=== PATIENT | female | born 1935 | race Caucasian/White ===

== ENCOUNTER 2018-04-06 00:24 | Inpatient (IN) ==
--- NOTE | 2018-04-06 04:56 | Internal Med History&Physical ---
Date of Encounter: 04/06/18 Time of Encounter: 04:51 Internal Medicine - H&P: HPI Chief complaint: Right humerus and ulnar fracture Admitted From: Home Plans for Post Hospital Care: Home History of present illness: Ms. GUERRA is a 82 year old female with history of diabetes mellitus, hypertension was transferred to [facility] from [facility] ER after diagnosing right displaced proximal humeral fracture, right nondisplaced proximal ulnar fracture. Patient is status that she was being chased by bees and she lost the balance and landed on her right hand and hit the head but did not lose the consciousness. She called her son who lives next door for the help and was brought to [facility] ER by him She also denies any anticoagulation medication intake. She had a scalp laceration and got three-step oral at the ER Review of system-patient denies fever chills nausea vomiting headache dizziness chest pain shortness of breath abdominal pain diarrhea. Patient has decreased urine output since yesterday as did not eat drink much since after the fall. Past Med Surg Social Fam HX - Past Medical History Medical history: diabetes, glaucoma, hypertension, thyroid disease Additional medical history: Prolapsed Bladder Psychiatric history: no psych history - Past Surgical History Surgical History: herniorrhaphy, hysterectomy - Social History Smoking Status: Never smoker Smokeless Tobacco Status: No Alcohol use: none Drug use: none - Family History Mother Name: home scott Living Status: Cause of : cancer Hx Family Cancer: Yes (cervical with mets to liver) Internal Medicine - H&P: Meds Doxycycline Hyclate [Vibramycin] 100 mg PO 1-2XD 04/06/18 [History] GlipiZIDE [Glipizide ER] 10 mg PO 1-2XD 04/06/18 [History] Levothyroxine [Synthroid] 125 mcg PO DAILY 04/06/18 [History] Lisinopril [Zestril] 5 mg PO DAILY 04/06/18 [History] Loratadine [Allergy Relief] 10 mg PO DAILY 04/06/18 [History] 3 Allergy/AdvReac Type Severity Reaction Status Date / Time No Known Allergies Allergy Verified 04/06/18 03:36 All Systems PM: A 10-system review of systems was performed and is negative for pertinent findings except as documented above in the HPI. - Constitutional Vitals: Temp Pulse Resp BP Pulse Ox 98.8 F 77 16 136/70 93 04/06/18 02:57 04/06/18 02:57 04/06/18 02:57 04/06/18 02:57 04/06/18 02:57 Exam: General appearance: Mild distress due to pain , A&O X 3, appears slightly dehydrated Head exam: Scalp laceration three brittnee at right parietal area Eye exam: EOMI, PERRLA ENT exam: Dry oral mucosa Neck nontender, supple Respiratory exam: Clear to auscultation bilaterally Cardiovascular exam: Regular rate and rhythm, no systolic murmur Abdominal exam: Soft, nontender, nondistended, positive bowel sounds Extremities exam: No calf tenderness, no pedal edema Present: Right upper extremity tender arm and forearm. Right upper extremity on swelling. Able to move all the fingers and intact sensation radial pulse palpable. Skin-no rash, warm, dry, intact Neurological exam: Alert, awake, oriented 3, CN II-XII intact, no focal deficits. No facial droop. Normal speech. Normal gait. - Assessment and plan (1) Humerus fracture Current Visit: Yes Status: Acute Assessment and plan: After mechanical fall. Displaced right humerus fracture intact neurovascular. Will keep patient nothing by mouth, IV fluid, pain management. Consulted orthopedic surgeon. Qualifiers: Encounter type: initial encounter Humerus Location: proximal Fracture type: closed Fracture morphology: other fracture Fracture alignment: displaced Laterality: right Qualified Code(s): S42.291A - Other displaced fracture of upper end of right humerus, initial encounter for closed fracture (2) Ulnar fracture Current Visit: Yes Status: Acute Assessment and plan: Status post mechanical fall. Nondisplaced right ulnar fracture. Management as above Qualifiers: Encounter type: initial encounter Fracture type: closed Fracture alignment: nondisplaced Laterality: right Qualified Code(s): S52.024A - Nondisplaced fracture of olecranon process without intraarticular extension of right ulna, initial encounter for closed fracture (3) Fall Current Visit: Yes Status: Acute Assessment and plan: Mechanical fall. Patient had a scalp laceration with 3 brittnee. Close monitoring no neurological deficit and patient did not lose consciousness therefore no head CT ordered but will consider if any concern. Qualifiers: Encounter type: initial encounter Qualified Code(s): W19.XXXA - Unspecified fall, initial encounter (4) HTN (hypertension) Current Visit: Yes Status: Acute Assessment and plan: Hold oral medicine. Hydralazine when necessary Qualifiers: Hypertension type: essential hypertension Qualified Code(s): I10 - Essential (primary) hypertension (5) Diabetes mellitus Current Visit: Yes Status: Acute Assessment and plan: Accu-Chek every 6 hours while nothing by mouth, sliding scale insulin coverage. Hold OHA Qualifiers: Diabetes mellitus type: type 2 Diabetes mellitus long-term insulin use: without long-term use Diabetes mellitus complication status: without complication Qualified Code(s): E11.9 - Type 2 diabetes mellitus without complications (6) DVT prophylaxis Current Visit: Yes Status: Acute Assessment and plan: SCDs, heparin - Time Spent With Patient Total time spent is greater than 50% in coordination of care (as documented) at patient's floor/unit and/or counseling patient: 25 - 35 minutes
[2018-04-06] MEDS ORDERED: Naloxone 0.4 MG/ML INJ IVP PRN (04:57)
[2018-04-06] MEDS ORDERED: *HR* Dextrose 50 % in Water (Syg) 50 ML SYRINGE IVP PRN (05:04)
[2018-04-06] MEDS ORDERED: D5% in Water 1,000 ML IVC PRN (05:04)
[2018-04-06] MEDS ORDERED: Dextrose Gel 15 GM/37.5 ML TUBE PO PRN ×2 (05:04)
[2018-04-06] MEDS ORDERED: Insulin LISPRO 300 UNITS/3 ML VIAL SQ SCH ×2 (06:00→21:00)
[2018-04-06 06:01] LABS: Basophils % 0.2 %; Hematocrit 36.8 % (35.3-44.9); Hemoglobin 12.2 g/dL (11.5-15.4); Immature Granulocytes % 0.4 % (0-4); Lymphocytes # 1.4 K/mcL (0.6-4.6); Lymphocytes % 12.7 %; Mean Corpuscular HGB Conc 33.2 g/dL (31.6-35.5); Mean Corpuscular Hemoglobin 30.1 pg (28.0-33.3); Mean Corpuscular Volume 90.9 fL (83.0-100.0); Mean Platelet Volume 9.9 fL (9.4-12.4); Monocytes # 0.5 K/mcL (0.0-1.3); Monocytes % 4.2 %; Neutrophils # 9.2 K/mcL (1.6-8.9); Platelet Count 180 K/mcL (140-400); Red Blood Count 4.05 M/mcL (3.82-4.97); Red Cell Distribution Width 13.2 % (11.5-14.5); Segmented Neutrophils % 82.5 %
[2018-04-06] MEDS: 0.9 % Sodium Chloride 1,000 ML IVC SCH ×2 (06:02→17:54)
[2018-04-06] MEDS: Acetaminophen IV 1,000 MG/100 ML INFUS..BTL IVPB SCH ×4 (06:04→23:44)
[2018-04-06 06:09] LABS: INR 1.1; Prothrombin Time 12.8 Seconds (9.4-12.1)
[2018-04-06 06:11] LABS: Activated Partial Thrombo Time 28.1 Seconds (26.0-36.0)
[2018-04-06 06:20] LABS: BUN/Creatinine Ratio 21 (6-26); Blood Urea Nitrogen 20 mg/dL (8-23); Calcium 9.3 mg/dL (8.6-10.3); Carbon Dioxide 23 mEq/L (23-29); Chloride 107 mEq/L (98-107); Glucose 346 mg/dL (70-105); Osmolality,Calculated 300 (280-300); Potassium 4.7 mEq/L (3.5-5.1); Sodium 137 mEq/L (136-145); eGFR For African Americans > 60 (> 60); eGFR For Non-African Americans 56 (> 60)
[2018-04-06 06:42] LABS: Estimated Average Glucose 220 mg/dl; Hemoglobin A1C 9.3 %
--- NOTE | 2018-04-06 06:44 | Orthopedic Consult Note ---
Date of Encounter: 04/06/18 Time of Encounter: 06:42 History of Present Illness HPI: Ms. GUERRA is a 82 year old female Status post fall yesterday treated at another facility with injury to right side of head and right proximal humerus fracture. Patient transferred for treatment. Physical exam Alert and oriented 3 Patient with stapled laceration right-sided Right upper extremity in splint Decreased motion shoulder secondary to pain Neurovascular intact X-rays of the wrist reviewed and forearm possible nondisplaced ulnar styloid fracture will discontinue splint not necessary. Right shoulder displaced proximal humerus fracture will obtain CT scan for fracture pattern evaluation. Proximal humerus this surgical plan is for surgery tomorrow plan will be reverse shoulder replacement versus open reduction internal fixation after CT scan evaluated. This was discussed with the patient all questions answered. Past Med Surg Social Fam HX - Past Medical History Medical history: diabetes, glaucoma, hypertension, thyroid disease Additional medical history: Prolapsed Bladder Psychiatric history: no psych history - Past Surgical History Surgical History: herniorrhaphy, hysterectomy - Social History Smoking Status: Never smoker Smokeless Tobacco Status: No Alcohol use: none Drug use: none - Family History Mother Name: home scott Living Status: Cause of : cancer Hx Family Cancer: Yes (cervical with mets to liver) Medications and Allergies Doxycycline Hyclate [Vibramycin] 100 mg PO 1-2XD 04/06/18 [History] GlipiZIDE [Glipizide ER] 10 mg PO 1-2XD 04/06/18 [History] Levothyroxine [Synthroid] 125 mcg PO DAILY 04/06/18 [History] Lisinopril [Zestril] 5 mg PO DAILY 04/06/18 [History] Loratadine [Allergy Relief] 10 mg PO DAILY 04/06/18 [History] 3 Allergy/AdvReac Type Severity Reaction Status Date / Time No Known Allergies Allergy Verified 04/06/18 03:36 All Systems Reviewed: The remainder of the systems were reviewed and are negative Physical Exam - Constitutional Vitals: Temp Pulse Resp BP Pulse Ox 98.2 F 72 17 126/64 92 04/06/18 06:37 04/06/18 06:37 04/06/18 06:37 04/06/18 06:37 04/06/18 06:37 Results - Labs Result Diagrams: 04/06/18 05:49 04/06/18 05:49 Labs: Abnormal lab results Neutrophils # 9.2 K/mcL (1.6-8.9) H 04/06/18 05:49 PT 12.8 Seconds (9.4-12.1) H 04/06/18 05:49 Est GFR (Non-Af Amer) 56 (> 60) L 04/06/18 05:49 Glucose 346 mg/dL (70-105) H 04/06/18 05:49 POC Glucose 347 mg/dL (70-99) H 04/06/18 05:54 H & H 04/06/18 Range/Units 05:49 Hgb 12.2 (11.5-15.4) g/dL Hct 36.8 (35.3-44.9) % All other labs normal. Consult Discharge Plan - Plan Referrals: Rosalia Salazar, RN LABOR AND DELIVERY [Primary Care Provider] -
[2018-04-06] MEDS: *HR* Heparin 5,000 UNIT/ML VIAL SQ SCH ×3 (06:55→20:57)
--- NOTE | 2018-04-06 08:36 | Event Note ---
Date of Encounter: 04/06/18 Time of Encounter: 08:30 Ms. GUERRA is a 82 year old female with history of diabetes mellitus, hypertension was transferred to [facility] from [facility] after diagnosing right displaced proximal humeral fracture, right nondisplaced proximal ulnar fracture. Ortho was consulted today, they are plaining for possible surgery tomorrow. Preoperative medical assessment. Patient is 82 years of the female denies history of CAD, [place], stroke, CHF, CKD, she does have diabetes uncontrolled but not on insulin treatment. He denies exertional chest pain shortness of breasts. She is a very active, Mets > 4. Her RCRI score "0". she is considered as low risk for periop adverse cardiovascular events. will check EKG, CXR and UA for ORIF. Uncontrolled DM 2 with hyperglycemia A1C 9.3%, will add detmir 10 units BID
[2018-04-06] MEDS: Insulin LISPRO 300 UNITS/3 ML VIAL SQ SCH ×3 (09:13→17:40)
[2018-04-06] MEDS: Insulin DETEMIR 100 UNIT/ML X5UNITS SQ SCH ×2 (09:17→20:57)
[2018-04-06 15:27] LABS: Bilirubin,Urine Negative (Negative); Blood,Urine Negative (Negative); Clarity,Urine Clear (Clear); Color,Urine Yellow (Yellow); Glucose,Urine (UA) 500 mg/dL (Normal); Ketones,Urine Negative (Negative); Leukocyte Esterase,Urine Trace (Negative); Nitrite,Urine Negative (Negative); PH,Urine 5.5 pH Units (5.0-8.0); Protein,Urine Trace mg/dL (Neg-Trace); Specific Gravity,Urine > 1.030 (1.010-1.025); Urobilinogen,Urine Normal (Normal)
[2018-04-06 15:29] LABS: Bacteria,Urine None Seen per hpf (None-Few); Hyaline Casts,Urine None Seen per lpf (None-Few); Squamous Epithelial Cell,Urine Many per lpf (None-Few); WBC,Urine 15-30 per hpf (0-3)
[2018-04-06] MEDS ORDERED: 0.9 % Sodium Chloride 1,000 ML ONE (17:50)
[2018-04-07] MEDS: *HR* Heparin 5,000 UNIT/ML VIAL SQ SCH ×3 (05:43→21:06)
[2018-04-07] MEDS: Acetaminophen IV 1,000 MG/100 ML INFUS..BTL IVPB SCH ×3 (06:04→23:56)
[2018-04-07] MEDS ORDERED: Insulin DETEMIR 100 UNIT/ML X5UNITS SQ SCH (07:25)
[2018-04-07] MEDS: Insulin LISPRO 300 UNITS/3 ML VIAL SQ SCH ×4 (07:30→21:07)
[2018-04-07] MEDS ORDERED: *HR* HYDROcodone/Acet 5/325 mg TABLET PO PRN (07:51)
[2018-04-07] MEDS ORDERED: 0.9 % Sodium Chloride 1,000 ML IVC SCH (08:15)
[2018-04-07 09:40] LABS: Hematocrit 34.4 % (35.3-44.9); Hemoglobin 11.4 g/dL (11.5-15.4)
[2018-04-07] MEDS ORDERED: *HR* Midazolam HCl 2 MG/2 ML VIAL ONE (10:07)
[2018-04-07] MEDS ORDERED: *HR* Propofol 200 MG/20 ML VIAL IVP ONE (10:07)
[2018-04-07] MEDS ORDERED: *HR* FentaNYL (PF) 100 MCG/2 ML VIAL ONE (10:07)
[2018-04-07] MEDS ORDERED: *HR* Succinylcholine 200 MG/10 ML VIAL IVP ONE (10:14)
[2018-04-07] MEDS ORDERED: Lidocaine -MPF 2% 2 ML VIAL ONE (10:14)
[2018-04-07] MEDS ORDERED: Lidocaine -MPF 4% 5 ML AMPUL ONE (10:14)
[2018-04-07] MEDS ORDERED: *HR* Rocuronium Bromide 50 MG/5 ML VIAL ONE (10:14)
[2018-04-07] MEDS ORDERED: Tetracaine/PF 20 MG/2 ML AMPUL ONE (10:58)
[2018-04-07] MEDS ORDERED: Bupivacaine/Clonidine Syringe 1 EACH SYRINGE ONE (10:58)
[2018-04-07] MEDS ORDERED: ROPIVACAINE HCL/PF 0.5% 30 ML VIAL ONE (10:58)
--- NOTE | 2018-04-07 11:00 | Anesthesia Evaluation PreOp ---
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: Denies Any Significant HX Other Medical History: Diabetes Type II, Thyroid Anesthesia History: No Prior Anesthetic Complications : No Alcohol Use: none Drug use: none Medications and Allergies Doxycycline Hyclate [Vibramycin] 100 mg PO 1-2XD 04/06/18 [History] Latanoprost [Xalatan] 1 drop OP HS 04/06/18 [History] Levothyroxine [Synthroid] 125 mcg PO DAILY 04/06/18 [History] Lisinopril [Zestril] 5 mg PO DAILY 04/06/18 [History] Loratadine [Allergy Relief] 10 mg PO DAILY 04/06/18 [History] glipiZIDE [Glipizide] 10 mg PO TID 04/06/18 [History] 3 Allergy/AdvReac Type Severity Reaction Status Date / Time No Known Allergies Allergy Verified 04/06/18 03:36 - Meds/Allergy Pre-op Review Medications Reviewed: Yes Allergies Reviewed: Yes Beta Blockers on Current Med List: No Anesthesia Results - Labs 04/07/18 08:37 04/06/18 05:49 Laboratory Tests 04/06/18 04/06/18 04/06/18 05:49 05:49 05:49 Hgb Hct Plt Count 180 PT 12.8 H INR 1.1 APTT 28.1 Sodium 137 Potassium 4.7 BUN 20 Creatinine 0.96 04/07/18 08:37 Hgb 11.4 L Hct 34.4 L Plt Count PT INR APTT Sodium Potassium BUN Creatinine - Imaging EKG: report reviewed (SR) Anesthesia Exam O2 Sat Weight 82 kg Weight 76.9 kg O2 Sat by Pulse Oximetry 96 O2 Sat by Pulse Oximetry 94 O2 Sat by Pulse Oximetry 95 O2 Sat by Pulse Oximetry 96 O2 Sat by Pulse Oximetry 96 O2 Sat by Pulse Oximetry 93 O2 Sat by Pulse Oximetry 98 Vital Signs Temp Pulse Resp BP Pulse Ox 98.8 F 77 16 136/70 93 04/06/18 02:57 04/06/18 02:57 04/06/18 02:57 04/06/18 02:57 04/06/18 02:57 Height: 5'5 Weight: 180 lbs NPO (# of Hours): MN Pain Scale: 0 - HEENT Pupil (Motor): Pupils equal, EOMI Mallampati: II Teeth: Normal Oral Opening: Greater than 3 - PROSTHODONTIST/EDUCATOR LOC: Oriented PROSTHODONTIST/EDUCATOR Motor: Normal RUE, Normal LUE, Normal RLE, Normal LLE, Normal Face PROSTHODONTIST/EDUCATOR Sensory: Normal: RUE, LUE, RLE, LLE, Face - Cardiac Rhythm: Regular Murmur: None JVD: No Carotid Bruit: No - Pulmonary Breath Sounds: bilateral Clear Respiratory Effort: Symmetrical Anesthesia Assess/Plan ASA Score: 3 (HTN DM) Modified [place] Scale for Level of Consciousness: Cooperative, oriented, and tranquil Anesthetic Plan: General, Regional Monitoring Plan: Standard Monitors Recovery Plan: PACU (Discussed GA and RA, agrees to proceed)
[2018-04-07] MEDS ORDERED: Ondansetron 4 MG/2 ML VIAL IVP ONE ×2 (11:42→14:50)
[2018-04-07] MEDS ORDERED: *HR* HYDROmorphone 2 MG TABLET PO PRN ×2 (11:42→14:50)
[2018-04-07] MEDS ORDERED: *HR* OxyCODONE Immed Rel 5 MG TABLET PO PRN ×2 (11:42→14:50)
[2018-04-07] MEDS ORDERED: MORPHINE SUL Oral CONC 10 MG/0.5 ML ORAL.SYG SL PRN ×2 (11:42→14:50)
--- NOTE | 2018-04-07 11:53 | Anesthesia Procedures ---
Date of Encounter: 04/07/18 Time of Encounter: 11:52 Procedures: Anesthesia - Nerve Block Procedure Date: 04/07/18 Time: 11:52 Allergies/Adv Reactions: NKDA Pre-op Diagnosis: R shoulder fracture Surgical Procedure: R TSR, reverse Checklist: Correct Patient Identifier, Correct procedure, History checked Correct side: Right Blood Thinner: No Monitor Applied: EKG, BP, Pulse Oximetry Supplemental Oxygen via Nasal Cannula (L/min): 3 Sedation: Versed (mg): 1 Sedation: Fentanyl (mcg): 25 Indication: Post Op Analgesia (requested by Dr. Clemons) Pre-op Neuro Deficits: No Block Type: Supraclavicular, Other (SCP, ICB) Catheter placed: No Sterile Technique: Yes Ultrasound used: Yes Anatomy identified: Yes Visual spread of Local: Yes Neuro Stimulation: No Nerve Stimulator Range: 0.2 - 0.4 mA Blood on Needle Aspiration: No Smooth Injection of Local: Yes Pain with Injection of Local: No Prep: Chlorhexadine Needle: 22 x 50 mm Stimuplex Local: 0.25% Bupivicaine w/Clonidine 20 mcg/cc (5mL for SCP, 7.5mL for ICB), Tetracaine (1%, 2mL for supraclavicular n. block), Ropivacaine (0.5%, 30mL for supraclavicular n. block) Number of Attempts: 1 Complications: None/effective block Vitals: see "holding vital signs" note Comments: successful on 1st attempt; patient tolerated procedure well; VSS
[2018-04-07] MEDS ORDERED: EPHEDrine 50 MG/ML VIAL ONE (11:58)
[2018-04-07] MEDS ORDERED: Dexamethasone 4 MG/ML VIAL ONE (12:11)
[2018-04-07] MEDS ORDERED: Ondansetron 4 MG/2 ML VIAL ONE (12:11)
--- NOTE | 2018-04-07 12:54 | Orthopedic Operative Note ---
Date of procedure: 04/07/18 Pre-op diagnosis: Displace right proximal femur fracture Post-op diagnosis: same Procedure: Procedure: Reverse total shoulder replacment, right Estimated blood loss: 100 cc Hardware: Metal and polyethylene replacement Arthrex glenoid baseplate: Medium , 2 4.5 screws. 1 6.5 screw, glenosphere: 42+4 , humeral stem:9 , poly insert: 3 constrained 2, Arthrex cerclage fiber tapes Procedural Notes: Displaced proximal humeral fracture Operative procedure: The patient was brought to the operating room and placed on the operating room table. After general anesthesia was administered the operative shoulder was examined. Findings were noted. The patient was placed in the modified beachchair position. All pressure points were padded appropriately. And the head was stabilized in the neutral position. The operative extremity was prepped and draped in the sterile surgical fashion. The patient received IV antibiotics prior to skin incision. A standard deltopectoral approach was made to the operative shoulder. Incision was made to the skin and subcutaneous tissue,hemo stasis was obtained with Bovie cautery. Using careful blunt dissection the cephalic vein was identified and mobilized medially. The deltopectoral interval was developed and the clavipectoral fascia was incised. The lesser tuberosity was identified and tagged with 2 #2 fiber loops and 2 #2 FiberWire suture. The greater tuberosity was identified and tagged with 2 #2 cerclage fiber tape . The humeral head was removed. Anterior and posterior Bankart retractors were placed to expose the glenoid. The glenoid guide was seated and the centering hole was made. It was reamed with the appropriate reamer. The medium baseplate was seated and secured with ( 2) 4.5 screws and one 6.5 screw. The baseplate was irrigated and dried and the appropriate 42+4 was seated and secured with the Decker taper. The Decker taper was tested and found to be secure the humerus was redislocated and prepared with the diaphyseal reamers, followed by a broaching process up to the appropriate size 9 in 20 degrees of retro-version. Trial reduction found the shoulder to be relocatable. The real humeral component was impaced in place in 20 degrees of retroversion. Trial reduction found the shoulder to be relocatable and stable with the appropriate 3 constrained inserts. Trial component was removed and the real implant was seated and secured the shoulder was reduced. The shoulder had excellent motion and excellent stability and no evidence of dislocation. The greater tuberosity was reduced and repaired to the implant with 2 #2 fiber cerclage tapes . the lesser tuberosity was reduced and repaired to this construct with 2 #5 fiberwire sutures. The deep tissue was irrigated with pulse irrigation. The PA close the shoulder The deltopectoral interval was closed with a running #1 PDS suture, subcutaneous tissue was irrigated and closed with 0 PDS suture, the skin was closed with Dermabond. The patient was placed in a sterile dressing, abduction brace and extubated. The patient was then transferred to the recovery room in stable condition. Anesthesia: GETA Surgeon: Eldon Clemons Was there an preschool assistant principal present: Yes Player Services Representative: Verenice Mcclellan Estimated blood loss (cc): 100 Condition: stable Disposition: PACU
--- NOTE | 2018-04-07 13:48 | Anesthesia Evaluation Post Op ---
Date of Encounter: 04/07/18 Time of Encounter: 13:47 - Vital Signs Vital Signs: Vital Signs/O2 Sat, Most Current Temp Pulse Resp BP Pulse Ox 97.1 F L 85 16 144/65 97 04/07/18 13:41 04/07/18 13:41 04/07/18 13:41 04/07/18 13:41 04/07/18 13:41 - Lungs Lungs: Clear Ascult./Percussion - Airway Airway: Non-obstructed - Cardiovascular Regular Rate - Mental Status Mental Status: Alert & Oriented, Answers Appropriately - Pain Pain Scale: 0 Pain Scale used: Numeric (1 - 10) - Nausea Vomiting Nausea Vomiting: Not Present - Hydration Hydration: NPO, Rothman catheter - Discharge PostOp Status: Transfer Patient to floor
[2018-04-07 13:57] LABS: Hematocrit 32.9 % (35.3-44.9); Hemoglobin 10.9 g/dL (11.5-15.4)
[2018-04-07] MEDS ORDERED: MOM Conc 10 ML UD.LIQ PO PRN (14:50)
[2018-04-07] MEDS ORDERED: Temazepam 15 MG CAPSULE PO PRN (14:50)
[2018-04-07] MEDS ORDERED: Sennosides 8.6 MG TABLET PO PRN (14:50)
[2018-04-07] MEDS ORDERED: Dextrose Gel 15 GM/37.5 ML TUBE PO PRN ×2 (14:50)
[2018-04-07] MEDS ORDERED: Naloxone 0.4 MG/ML INJ IVP PRN (14:50)
[2018-04-07] MEDS ORDERED: *HR* Dextrose 50 % in Water (Syg) 50 ML SYRINGE IVP PRN (14:50)
[2018-04-07] MEDS ORDERED: D5% in Water 1,000 ML IVC PRN (14:50)
[2018-04-07] MEDS: 0.9 % Sodium Chloride 1,000 ML IVC SCH (15:28)
--- NOTE | 2018-04-07 16:44 | Internal Med Progress Note ---
Date of Encounter: 04/07/18 Time of Encounter: 08:00 - Assessment and plan (1) Ulnar fracture Current Visit: Yes Status: Acute Assessment and plan: nondisplaced ulnar styloid fracture, non-surgical mangement. discontinued splint not necessary Qualifiers: Encounter type: initial encounter Fracture type: closed Fracture alignment: nondisplaced Laterality: right Qualified Code(s): S52.024A - Nondisplaced fracture of olecranon process without intraarticular extension of right ulna, initial encounter for closed fracture (2) Humerus fracture Current Visit: Yes Status: Acute Assessment and plan: reverse shoulder replacement versus open reduction internal fixation today add norco for pain control Qualifiers: Encounter type: initial encounter Humerus Location: proximal Fracture type: closed Fracture morphology: other fracture Fracture alignment: displaced Laterality: right Qualified Code(s): S42.291A - Other displaced fracture of upper end of right humerus, initial encounter for closed fracture (3) HTN (hypertension) Current Visit: Yes Status: Acute Qualifiers: Hypertension type: essential hypertension Qualified Code(s): I10 - Essential (primary) hypertension (4) DVT prophylaxis Current Visit: Yes Status: Acute (5) Diabetes mellitus Current Visit: Yes Status: Acute Assessment and plan: Uncontrolled DM 2 with hyperglycemia A1C 9.3%, increased detmir to 20 units BID Qualifiers: Diabetes mellitus type: type 2 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 GUERRA is a 82 year old female with history of diabetes mellitus, hypertension was transferred to [facility] from [facility] after diagnosing right displaced proximal humeral fracture, right nondisplaced proximal ulnar fracture. Ortho was consulted today, they are plaining for possible surgery tomorrow. Preoperative medical assessment. Patient is 82 years of the female denies history of CAD, [place], stroke, CHF, CKD, she does have diabetes uncontrolled but not on insulin treatment. He denies exertional chest pain shortness of breasts. She is a very active, Mets > 4. Her RCRI score "0". she is considered as low risk for periop adverse cardiovascular events. EKG, CXR and UA are unremarkable Uncontrolled DM 2 with hyperglycemia A1C 9.3%, increased detmir to 20 units BID - Constitutional Vitals: Temp Pulse Resp BP Pulse Ox 97.7 F 84 14 142/69 96 04/07/18 14:10 04/07/18 14:10 04/07/18 14:10 04/07/18 14:10 04/07/18 14:10 General appearance: Present: A&O X 3, pleasant, answers questions appropriately Exam: CONSTITUTIONAL: patient appears as an age appropriate female in no acute distress. EYES Clear sclerae, bilateral pupils are equal, reactive to light. EMOI. RESPIRATORY: No accessory muscle use, bilateral clear to auscultation, no wheezing, no crackles/rales. CARDIOVASCULAR: Regular heart rate, normal S1 and S2, no murmurs GASTROINTESTINAL: bowel sounds present, soft, no tenderness. MUSCULOSKELETAL: Joints in normal range of motion, no clubbing, no edema, no cyanosis. Bilateral peripheral pulses 2+. NEUROLOGIC: CN II to XII are grossly intact, no focal neurological deficit. Internal Medicine: Result - Labs CBC & Chem 7: 04/07/18 13:36 04/06/18 05:49 Labs: Short CBC 04/07/18 04/07/18 Range/Units 08:37 13:36 Hgb 11.4 L 10.9 L (11.5-15.4) g/dL Hct 34.4 L 32.9 L (35.3-44.9) % - ABG Interpretation ABG results: PT/INR, D-dimer PT 12.8 Seconds (9.4-12.1) H 04/06/18 05:49 - Impressions Impressions Chest X-Ray 04/06/18 16:15 IMPRESSION: No acute cardiopulmonary disease. D/ / Sohail Armstrong MD / Sohail Armstrong MD Interpreting Provider: Sohail Armstrong MD Shoulder X-Ray 04/07/18 07:39 IMPRESSION: Right shoulder prosthesis with postsurgical changes as above. D/ / Luca Lauren MD / Luca Lauren MD Interpreting Provider: Luca Lauren MD - VTE Documentation of Mechanical Device: Venous foot pump, device Consult Discharge Plan - Plan Referrals: Rosalia Salzaar, [employer] [Primary Care Provider] -
--- NOTE | 2018-04-07 18:51 | Event Note ---
Date of Encounter: 04/07/18 Time of Encounter: 08:00 Patient was consented for a Right TSR-r. Plan discussed with her and she is agreement. Risks and benefits reviewed. Called family - LMTRC.
--- NOTE | 2018-04-07 18:57 | Electrocardiograph Report ---
[place] [id number] Test Date: 2018-04-06 Pat Name: FRANCISCO J GUERRA Department: 114 Room: 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
[2018-04-07] MEDS ORDERED: NON-FORMULARY MEDICATION 1 EACH EACH (Glipizide [Glipizide] 10 MG) PO SCH (21:00)
[2018-04-07] MEDS: Insulin DETEMIR 100 UNIT/ML X5UNITS SQ SCH (21:07)
[2018-04-07] MEDS: Latanoprost 2.5 ML BOTTLE BOTH EYES SCH (21:10)
[2018-04-07] MEDS: *HR* HYDROcodone/Acet 5/325 mg TABLET PO PRN (23:57)
[2018-04-08 01:52] LABS: Basophils % 0.1 %; Hemoglobin 10.8 g/dL (11.5-15.4); Immature Granulocytes % 0.3 % (0-4); Lymphocytes % 11.6 %; Mean Corpuscular HGB Conc 33.8 g/dL (31.6-35.5); Mean Platelet Volume 10.1 fL (9.4-12.4); Monocytes # 0.4 K/mcL (0.0-1.3); Monocytes % 4.4 %; Neutrophils # 7.2 K/mcL (1.6-8.9); Platelet Count 170 K/mcL (140-400); Red Blood Count 3.48 M/mcL (3.82-4.97); Red Cell Distribution Width 13.2 % (11.5-14.5); Segmented Neutrophils % 83.6 %
[2018-04-08 02:01] LABS: BUN/Creatinine Ratio 14 (6-26); Blood Urea Nitrogen 12 mg/dL (8-23); Calcium 8.4 mg/dL (8.6-10.3); Carbon Dioxide 21 mEq/L (23-29); Chloride 107 mEq/L (98-107); Glucose 228 mg/dL (70-105); Osmolality,Calculated 289 (280-300); Potassium 4.2 mEq/L (3.5-5.1); Sodium 136 mEq/L (136-145); eGFR For African Americans > 60 (> 60); eGFR For Non-African Americans > 60 (> 60)
[2018-04-08] MEDS: Acetaminophen IV 1,000 MG/100 ML INFUS..BTL IVPB SCH ×3 (05:13→17:45)
[2018-04-08] MEDS: *HR* HYDROcodone/Acet 5/325 mg TABLET PO PRN ×4 (05:13→21:40)
[2018-04-08] MEDS: *HR* Heparin 5,000 UNIT/ML VIAL SQ SCH ×3 (06:19→21:44)
--- NOTE | 2018-04-08 06:36 | Orthopedics Progress Note ---
Date of Encounter: 04/08/18 Time of Encounter: 06:36 Subjective Interval history: Patient was seen this morning doing well without complaints. Afebrile vital signs stable. Operative extremity: Neurovascularly intact Dressing clean dry and intact Calves nontender Assessment and plan: Continue with postoperative care Hemoglobin 10.8 orthopedically stable for discharge Objective Vital signs: Vital Signs Temp Pulse Resp BP Pulse Ox 04/08/18 03:26 98.1 F 68 16 136/71 94 04/07/18 23:35 97.9 F 95 16 125/71 93 04/07/18 19:56 98.1 F 106 18 141/74 94 04/07/18 14:10 97.7 F 84 14 142/69 96 04/07/18 13:51 97.8 F 78 16 139/66 96 04/07/18 13:41 97.1 F L 85 16 144/65 97 04/07/18 13:31 80 20 145/69 97 04/07/18 13:21 81 20 144/65 97 04/07/18 13:11 97.2 F L 89 20 146/62 94 04/07/18 11:31 69 144/79 97 04/07/18 07:22 97.9 F 62 14 158/71 96 Intake and Output 04/07/18 04/07/18 04/08/18 15:59 23:59 07:59 Intake Total 0 / 0 1020 / 1020 150 / 150 Output Total 400 / 400 0 / 0 0 / 0 Balance -400 / -400 1020 / 1020 150 / 150 Intake: IV Fluids 100 / 100 100 / 100 Ofirmev 1,000 mg/100 ml 1,000 100 / 100 100 / 100 mg In 100 ml @ 400 mls/hr IVPB Q6HR [facility] Rx#:[id number] Oral 0 / 0 920 / 920 50 / 50 Output: Urine 300 / 300 0 / 0 0 / 0 Estimated Blood Loss 100 / 100 Other: # Voids 1 1 Weight 82 kg 82.7 kg Blood Glucose* 144 259 Patient Weight 04/08/18 23:59 Weight 82.7 kg - Labs CBC & BMP: 04/08/18 01:24 04/08/18 01:24 Labs: Abnormal lab results RBC 3.48 M/mcL (3.82-4.97) L 04/08/18 01:24 Hgb 10.8 g/dL (11.5-15.4) L 04/08/18 01:24 Hct 32.0 % (35.3-44.9) L 04/08/18 01:24 PT 12.8 Seconds (9.4-12.1) H 04/06/18 05:49 Carbon Dioxide 21 mEq/L (23-29) L 04/08/18 01:24 Glucose 228 mg/dL (70-105) H 04/08/18 01:24 POC Glucose 219 mg/dL (70-99) H 04/07/18 16:56 Hemoglobin A1c 9.3 % (-5.6) H 04/06/18 05:49 Calcium 8.4 mg/dL (8.6-10.3) L 04/08/18 01:24 Ur Specific [place] > 1.030 (1.010-1.025) H 04/06/18 15:15 Urine Glucose (UA) 500 mg/dL (Normal) H 04/06/18 15:15 Ur Leukocyte Esterase Trace (Negative) H 04/06/18 15:15 Urine Microscopic RBC 3-5 per hpf (0-3) H 04/06/18 15:15 Urine Microscopic WBC 15-30 per hpf (0-3) H 04/06/18 15:15 Ur Squamous Epith Cells Many per lpf (None-Few) H 04/06/18 15:15 Ur Culture Indicated? NO. (NO) A 04/06/18 15:15 - VTE Documentation of Mechanical Device: Venous foot pump, device Consult Discharge Plan - Plan Referrals: Rosalia Salazar, PRODUCTION METAL SPRAYER [Primary Care Provider] -
[2018-04-08] MEDS: Insulin DETEMIR 100 UNIT/ML X5UNITS SQ SCH ×2 (08:02→21:47)
[2018-04-08] MEDS: Insulin LISPRO 300 UNITS/3 ML VIAL SQ SCH ×4 (08:03→21:43)
--- NOTE | 2018-04-08 12:21 | Physician Discharge Referral ---
ExtendedCare Referral Info Transfer To: [facility] Provider in Charge after Transfer: PCP Institutional Level of Care: Skilled - Diagnosis (1) Status post reverse total replacement of right shoulder Priority: Primary Status: Acute (2) Humerus fracture Priority: Primary Status: Acute (3) Fall Priority: Primary Status: Acute (4) HTN (hypertension) Priority: Secondary Status: Chronic (5) DVT prophylaxis Priority: Secondary Status: Acute Expected Duration of Placement: < 30 days Prognosis: Good Aware of Diagnosis: Patient Aware of Prognosis: Patient - Transfer Medications Prescriptions: HYDROcodone/Acet 5/325 mg [[place] 5-325 mg] 1 tab PO Q6HR PRN 7 Days #28 tablet PRN Reason: Moderate Pain Home Medications: Doxycycline Hyclate [Vibramycin] 100 mg PO 1-2XD 04/06/18 [History] Latanoprost [Xalatan] 1 drop OP HS 04/06/18 [History] Levothyroxine [Synthroid] 125 mcg PO DAILY 04/06/18 [History] Lisinopril [Zestril] 5 mg PO DAILY 04/06/18 [History] Loratadine [Allergy Relief] 10 mg PO DAILY 04/06/18 [History] glipiZIDE [Glipizide] 10 mg PO TID 04/06/18 [History] HYDROcodone/Acet 5/325 mg [[place] 5-325 mg] 1 tab PO Q6HR PRN 7 Days #28 tablet 04/08/18 [Rx] Allergies/Adverse Reactions: 3 Allergy/AdvReac Type Severity Reaction Status Date / Time No Known Allergies Allergy Verified 04/06/18 03:36 - Respiratory Orders None Smoking Cessation: Smoking cessation has been advised. For more information, call the [place] Tobacco Quit Line at 3-228-LXWR-NOW. - Mobility Orders Chair, Ambulate - Rehabiliation Orders Rehab Potential: Good Rehab Orders: Evaluation for Physical Therapy, Evaluation for Occupational Therapy Other: No Shoulder ROM exercises. OK to remove sling to perform elbow exercises; hand and wrist exercises. PT/OT recommended. No lifting/pulling or pushing with affected extremity Encourage ambulation. - Treatments List/Other: Opsite dressing, leave intact until first post-operative visit. Zipline in place , plan to remove at post-operative day #14-16. If dressing becomes >50% saturated, contact office, remove dressing and place appropriate dressing in its place. Do not allow for dressing to get wet. Shoulder Precautions x 6 weeks. No Shoulder ROM x 6 weeks* Apply cold therapy wrap 3-6x/day for 20 minutes at a time. Encourage ambulation throughout the day. Use Incentive spirometer 10x/hour. Elevate affected extremity above heart as tolerated. NWB to affected upper extremity x 6 weeks. CERTIFICATION: I certify that the transfer of the above named patient to an Extended Care Facility is necessary for the continuing treatment of the diagnosis listed. The above information is true and accurate reflection of patient's current condition. Confidential - Redisclosure prohibited without a patient's written consent.
--- NOTE | 2018-04-08 12:25 | Event Note ---
Date of Encounter: 04/08/18 Time of Encounter: 12:24 ECF continuity placed. Stable for D/C from orthopedics. Reviewed restrictions.
--- NOTE | 2018-04-08 16:28 | Internal Med Progress Note ---
Date of Encounter: 04/08/18 Time of Encounter: 14:50 - Assessment and plan (1) Humerus fracture Current Visit: Yes Status: Acute Assessment and plan: s/p R shoulder replacement POD1 pain mx per ortho for ECF placement Qualifiers: Encounter type: initial encounter Humerus Location: proximal Fracture type: closed Fracture morphology: other fracture Fracture alignment: displaced Laterality: right Qualified Code(s): S42.291A - Other displaced fracture of upper end of right humerus, initial encounter for closed fracture (2) Ulnar fracture Current Visit: Yes Status: Acute Assessment and plan: for non-surgical mx Qualifiers: Encounter type: initial encounter Fracture type: closed Fracture alignment: nondisplaced Laterality: right Qualified Code(s): S52.024A - Nondisplaced fracture of olecranon process without intraarticular extension of right ulna, initial encounter for closed fracture (3) Diabetes mellitus Current Visit: Yes Status: Acute Assessment and plan: on glipizide at home currently on levemir 20U BID with mod dose sliding scale BG 190s, continue the current regimen Qualifiers: Diabetes mellitus type: type 2 Diabetes mellitus terminal computer operator insulin use: without shelter use Diabetes mellitus complication status: without complication Qualified Code(s): E11.9 - Type 2 diabetes mellitus without complications (4) HTN (hypertension) Current Visit: Yes Status: Chronic Assessment and plan: BP stable off lisinopril, monitor Qualifiers: Hypertension type: essential hypertension Qualified Code(s): I10 - Essential (primary) hypertension (5) Fall Current Visit: Yes Status: Acute Assessment and plan: mechanical in nature resulting in #1 and #2 PT Qualifiers: Encounter type: initial encounter Qualified Code(s): W19.XXXA - Unspecified fall, initial encounter (6) DVT prophylaxis Current Visit: Yes Status: Acute Assessment and plan: sq heparin - Time Spent With Patient Total time spent is greater than 50% in coordination of care (as documented) at patient's floor/unit and/or counseling patient: - Subjective Interval history: pain at the operative site is tolerable. No numbness/weakness of right hand. Appetite is fair. - Constitutional Vitals: Temp Pulse Resp BP Pulse Ox 97.9 F 74 16 129/50 94 04/08/18 11:02 04/08/18 11:02 04/08/18 11:02 04/08/18 11:02 04/08/18 11:02 General appearance: Present: A&O X 3, pleasant, answers questions appropriately Exam: General: Alert and oriented HEENT:EOM, pupils equal, round, and reactive. Cardiovascular:Normal S1 & S2, no murmurs or gallops. No JVD. Pulse regular. Lungs:Normal breath sounds, no wheezes or crackles. Abdomen:Soft, non-tender, no rigidity. Extremities:RUE in sling, neurovascularly intact distally Neurological:Normal cognition and motor skills. Skin:Normal color, no rash, no lesions. Pulses:Carotid and radial pulses normal +2. Rest of the physical exam is non-contributory Internal Medicine: Result - Labs CBC & Chem 7: 04/08/18 01:24 04/08/18 01:24 Labs: Short CBC 04/08/18 Range/Units 01:24 WBC 8.6 (4.3-11.1) K/mcL Hgb 10.8 L (11.5-15.4) g/dL Hct 32.0 L (35.3-44.9) % Plt Count 170 (140-400) K/mcL Neutrophils # 7.2 (1.6-8.9) K/mcL BMP 04/08/18 01:24 Sodium 136 Potassium 4.2 Chloride 107 Carbon Dioxide 21 L BUN 12 Creatinine 0.83 Glucose 228 H Calcium 8.4 L - ABG Interpretation ABG results: PT/INR, D-dimer PT 12.8 Seconds (9.4-12.1) H 04/06/18 05:49 - VTE Documentation of Mechanical Device: Venous foot pump, device Consult Discharge Plan - Plan Referrals: Rosalia Salazar, STEERER [Primary Care Provider] - Prescriptions: HYDROcodone/Acet 5/325 mg [[place] 5-325 mg] 1 tab PO Q6HR PRN 7 Days #28 tablet PRN Reason: Moderate Pain
[2018-04-08 18:06] LABS: Bilirubin,Urine Negative (Negative); Blood,Urine Negative (Negative); Clarity,Urine Clear (Clear); Color,Urine Yellow (Yellow); Glucose,Urine (UA) Normal (Normal); Ketones,Urine Negative (Negative); Leukocyte Esterase,Urine Negative (Negative); Nitrite,Urine Negative (Negative); Protein,Urine Negative (Neg-Trace); Specific Gravity,Urine 1.024 (1.010-1.025); Urobilinogen,Urine Normal (Normal)
[2018-04-08] MEDS: Latanoprost 2.5 ML BOTTLE BOTH EYES SCH (21:44)
[2018-04-09] MEDS: Acetaminophen IV 1,000 MG/100 ML INFUS..BTL IVPB SCH ×5 (00:30→17:35)
[2018-04-09 01:12] LABS: Hematocrit 28.4 % (35.3-44.9); Hemoglobin 9.7 g/dL (11.5-15.4)
[2018-04-09] MEDS: *HR* Heparin 5,000 UNIT/ML VIAL SQ SCH ×2 (06:04→17:05)
[2018-04-09] MEDS: 0.9 % Sodium Chloride 1,000 ML IVC SCH (06:59)
[2018-04-09] MEDS: Insulin LISPRO 300 UNITS/3 ML VIAL SQ SCH ×4 (06:59→17:33)
--- NOTE | 2018-04-09 07:41 | Orthopedics Progress Note ---
Date of Encounter: 04/09/18 Time of Encounter: 07:41 Subjective Interval history: Patient was seen this morning doing well without complaints. Afebrile vital signs stable. Operative extremity: Neurovascularly intact Dressing clean dry and intact Calves nontender Assessment and plan: Continue with postoperative care orthopedically stable for discharge Objective Vital signs: Vital Signs Temp Pulse Resp BP Pulse Ox 04/09/18 06:00 99.8 F H 87 18 161/72 92 04/09/18 03:34 98.9 F 70 16 134/66 93 04/08/18 23:29 98.9 F 82 16 152/63 93 04/08/18 20:10 99.2 F 75 16 117/57 93 04/08/18 16:47 98.0 F 76 16 116/55 93 04/08/18 11:02 97.9 F 74 16 129/50 94 04/08/18 08:18 98 Intake and Output 04/08/18 04/08/18 04/09/18 15:59 23:59 07:59 Intake Total 460 / 460 300 / 300 200 / 200 Output Total 0 / 0 525 / 525 Balance 460 / 460 300 / 300 -325 / -325 Intake: IV Fluids 100 / 100 100 / 100 200 / 200 Ofirmev 1,000 mg/100 ml 1,000 100 / 100 100 / 100 200 / 200 mg In 100 ml @ 400 mls/hr IVPB Q6HR [facility] Rx#:[id number] Oral 360 / 360 200 / 200 Output: Urine 0 / 0 525 / 525 Other: Meal Lunch Percent of Meal Consumed 100% # Voids 1 1 Blood Glucose* 194 188 202 - Labs CBC & BMP: 04/09/18 00:54 04/08/18 01:24 Labs: Abnormal lab results RBC 3.48 M/mcL (3.82-4.97) L 04/08/18 01:24 Hgb 9.7 g/dL (11.5-15.4) L 04/09/18 00:54 Hct 28.4 % (35.3-44.9) L 04/09/18 00:54 PT 12.8 Seconds (9.4-12.1) H 04/06/18 05:49 Carbon Dioxide 21 mEq/L (23-29) L 04/08/18 01:24 Glucose 228 mg/dL (70-105) H 04/08/18 01:24 POC Glucose 194 mg/dL (70-99) H 04/08/18 11:05 Hemoglobin A1c 9.3 % (-5.6) H 04/06/18 05:49 Calcium 8.4 mg/dL (8.6-10.3) L 04/08/18 01:24 Urine Microscopic RBC 3-5 per hpf (0-3) H 04/06/18 15:15 Urine Microscopic WBC 15-30 per hpf (0-3) H 04/06/18 15:15 Ur Squamous Epith Cells Many per lpf (None-Few) H 04/06/18 15:15 Ur Culture Indicated? NO. (NO) A 04/06/18 15:15 - VTE Documentation of Mechanical Device: Venous foot pump, device Consult Discharge Plan - Plan Referrals: Rosalia Salazar, HAZARDOUS WASTE TECHNICIAN [Primary Care Provider] - Prescriptions: HYDROcodone/Acet 5/325 mg [[place] 5-325 mg] 1 tab PO Q6HR PRN 7 Days #28 tablet PRN Reason: Moderate Pain
[2018-04-09] MEDS: Insulin DETEMIR 100 UNIT/ML X5UNITS SQ SCH (08:56)
[2018-04-09 15:12] VITALS: BP 139/71
--- NOTE | 2018-04-09 15:20 | Discharge Summary ---
Orders not resulted at time of discharge: Pending orders 04/07/18 09:48 US anesthesia pain block [US] Routine 04/07/18 12:38 Surgical Pathology [PTH] Routine Date of Encounter: 04/09/18 Time of Encounter: 12:30 - Discharge Diagnosis (1) Humerus fracture Priority: Primary Status: Acute Qualifiers: Encounter type: initial encounter Humerus Location: proximal Fracture type: closed Fracture morphology: other fracture Fracture alignment: displaced Laterality: right Qualified Code(s): S42.291A - Other displaced fracture of upper end of right humerus, initial encounter for closed fracture (2) Ulnar fracture Priority: Secondary Status: Acute Qualifiers: Encounter type: initial encounter Fracture type: closed Fracture alignment: nondisplaced Laterality: right Qualified Code(s): S52.024A - Nondisplaced fracture of olecranon process without intraarticular extension of right ulna, initial encounter for closed fracture (3) Diabetes mellitus Priority: Secondary Status: Acute Qualifiers: Diabetes mellitus type: type 2 Diabetes mellitus termite technician insulin use: without termite technician use Diabetes mellitus complication status: without complication Qualified Code(s): E11.9 - Type 2 diabetes mellitus without complications (4) HTN (hypertension) Priority: Secondary Status: Chronic Qualifiers: Hypertension type: essential hypertension Qualified Code(s): I10 - Essential (primary) hypertension (5) Fall Priority: Secondary Status: Acute Qualifiers: Encounter type: initial encounter Qualified Code(s): W19.XXXA - Unspecified fall, initial encounter (6) DVT prophylaxis Priority: Secondary Status: Acute Hospital course: Ms. GUERRA is a 82 year old female with PMHx of DM, HTN, was transferred from [facility] for R prox humeral fracture and non-displaced ulnar fracture after a mechanical fall. She underwent R shoulder replacement on 04/07 and her post- operative course was unremarkable. Ulnar fracture was managed conservatively. [facility] prior to returning home. Discharge discussed with: patient, nurse - Time Spent with Patient Total time spent providing and/or coordinating discharge services: Greater than 30 minutes - Discharge Medications Prescriptions: HYDROcodone/Acet 5/325 mg [[place] 5-325 mg] 1 tab PO Q6HR PRN 7 Days #28 tablet PRN Reason: Moderate Pain Home Medications: Latanoprost [Xalatan] 1 drop OP HS 04/06/18 [History] Levothyroxine [Synthroid] 125 mcg PO DAILY 04/06/18 [History] Lisinopril [Zestril] 5 mg PO DAILY 04/06/18 [History] Loratadine [Allergy Relief] 10 mg PO DAILY 04/06/18 [History] glipiZIDE [Glipizide] 10 mg PO TID 04/06/18 [History] HYDROcodone/Acet 5/325 mg [[place] 5-325 mg] 1 tab PO Q6HR PRN 7 Days #28 tablet 04/08/18 [Rx] Allergies/Adverse Reactions: 3 Allergy/AdvReac Type Severity Reaction Status Date / Time No Known Allergies Allergy Verified 04/06/18 03:36 Date of admission: 04/06/18 09:12 Primary care physician: VAHID Rice Consults: 04/06/18 05:01 Consult to Orthopedic Surgery [CONS] Routine Consulting Provider: [facility] Reason for Consult: Right humerus and ulna fracture Call Completed: Yes 04/07/18 14:50 Consult to Occupational Therapy [CONS] Routine Comment: post shoulder surgery Reason for Consult: post shoulder surgery Does patient have active BEDREST order?: No Is patient medically & hemodynamically stable?: Yes Consult to Physical Therapy [CONS] Routine Comment: post shoulder surgery Reason for Consult: post shoulder surgery Does patient have active BEDREST order?: No Is patient medically & hemodynamically stable?: Yes RT Post Op Consult [CONS] Routine 04/07/18 16:52 Consult to Occupational Therapy [CONS] Routine Comment: Evaluate, develop and implement POC Reason for Consult: discharge Does patient have active BEDREST order?: No Is patient medically & hemodynamically stable?: Yes Patient assessed for mobility or mobilized this visit?: Yes Consult to Physical Therapy [CONS] Routine Comment: Evaluate, develop and implement POC Reason for Consult: weakness Does patient have active BEDREST order?: No Is patient medically & hemodynamically stable?: Yes Patient assessed for mobility or mobilized this visit?: Yes - Constitutional Vitals: Temp Pulse Resp BP Pulse Ox 98.5 F 98 16 139/71 91 04/09/18 15:11 04/09/18 15:11 04/09/18 15:11 04/09/18 15:11 04/09/18 15:11 General appearance: Present: A&O X 3, pleasant, answers questions appropriately Exam: General: Alert and oriented HEENT:EOM, pupils equal, round, and reactive. Cardiovascular:Normal S1 & S2, no murmurs or gallops. No JVD. Pulse regular. Lungs:Normal breath sounds, no wheezes or crackles. Abdomen:Soft, non-tender, no rigidity. Extremities:RUE in sling, neurovascularly intact distally Neurological:Normal cognition and motor skills. Skin:Normal color, no rash, no lesions. Pulses:Carotid and radial pulses normal +2. Rest of the physical exam is non-contributory - Patient Status Disposition: Transfer SNF Condition: Good Overall status at discharge: patient is progressing back to baseline - Discharge Instructions Instructions: Arm Fracture in Adults (DC), Chronic Hypertension (DC), Diabetes Mellitus Type 2 in Adults (DC) Follow Up With: Rosalia Salazar POTLINE MONITOR [Primary Care Provider] - - Diet and Activity Activity: as per physical therapy Diet: diabetic diet - VTE Documentation of Mechanical Device: Venous foot pump, device
--- NOTE | 2018-04-09 15:26 | Physician Discharge Referral ---
ExtendedCare Referral Info Transfer To: [facility] - Diagnosis (1) Humerus fracture Priority: Primary Status: Acute (2) Ulnar fracture Priority: Secondary Status: Acute (3) Diabetes mellitus Priority: Secondary Status: Acute (4) HTN (hypertension) Priority: Secondary Status: Chronic (5) Fall Priority: Secondary Status: Acute (6) DVT prophylaxis Priority: Secondary Status: Acute Prognosis: Good Aware of Diagnosis: Patient Aware of Prognosis: Patient - Transfer Medications Prescriptions: HYDROcodone/Acet 5/325 mg [[place] 5-325 mg] 1 tab PO Q6HR PRN 7 Days #28 tablet PRN Reason: Moderate Pain Home Medications: Latanoprost [Xalatan] 1 drop OP HS 04/06/18 [History] Levothyroxine [Synthroid] 125 mcg PO DAILY 04/06/18 [History] Lisinopril [Zestril] 5 mg PO DAILY 04/06/18 [History] Loratadine [Allergy Relief] 10 mg PO DAILY 04/06/18 [History] glipiZIDE [Glipizide] 10 mg PO TID 04/06/18 [History] HYDROcodone/Acet 5/325 mg [[place] 5-325 mg] 1 tab PO Q6HR PRN 7 Days #28 tablet 04/08/18 [Rx] Allergies/Adverse Reactions: 3 Allergy/AdvReac Type Severity Reaction Status Date / Time No Known Allergies Allergy Verified 04/06/18 03:36 - Respiratory Orders Smoking Cessation: Smoking cessation has been advised. For more information, call the [employer] [place] Tobacco Quit Line at 9-912-CVJW-NOW. - Rehabiliation Orders Rehab Orders: ROM Exercises, Evaluation for Physical Therapy CERTIFICATION: I certify that the transfer of the above named patient to an Extended Care Facility is necessary for the continuing treatment of the diagnosis listed. The above information is true and accurate reflection of patient's current condition. Confidential - Redisclosure prohibited without a patient's written consent.
[2018-04-09] MEDS: *HR* HYDROcodone/Acet 5/325 mg TABLET PO PRN (18:03)
== END 2018-04-09 18:30 | DRG 483 ==
LOC: 3NENU → SUATTDRO 02:46 → 1NENUPED 04-07 11:50 → 3NENU 04-07 19:42
PROVIDERS: ADMIT Orthopaedic Surgery; ATTEND Internal Medicine